=== PATIENT | female | born 1985 | race Hispanic/Latino ===

== ENCOUNTER 2017-10-31 10:46 | Emergency (ER) | payer MEDICAID, OTHER ==
[2017-10-31] MEDS ORDERED: HYDROXYZINE HCL 25 MG TABLET ONE (12:00)
== END 2017-10-31 12:56 | disposition home or self-care (01) ==
LOC: EDH 10:46
DX: F41.8 Other specified anxiety disorders (principal)
CPT/HCPCS: 70360; 81025

== ENCOUNTER 2025-01-15 06:48 | Day surgery (SDC) | payer MEDICAID ==
[~2025-01-15] VITALS: Ht 167.6 cm; Wt 92.5 kg
[2025-01-15] VITALS (11 sets, daily range): BP systolic 117–135; BP diastolic 67–84; PULSE 64–88; RESP 15–18; TEMP 97.1–97.8
[2025-01-15] MEDS: 0.9%NACL 1000ML 1,000 ML IV ONE (07:33)
== END 2025-01-15 11:50 | disposition home or self-care (01) ==
LOC: ENDO 06:48 → DAH 06:48 → ENDO 11:50
PROVIDERS: ATTEND Surgery
DX: R12 Heartburn (principal); K31.89 Other diseases of stomach and duodenum; K29.70 Gastritis, unspecified, without bleeding; K44.9 Diaphragmatic hernia without obstruction or gangrene; K22.89 Other specified disease of esophagus; I10 Essential (primary) hypertension; F17.200 Nicotine dependence, unspecified, uncomplicated; K21.9 Gastro-esophageal reflux disease without esophagitis; E11.9 Type 2 diabetes mellitus without complications; E78.00 Pure hypercholesterolemia, unspecified; Z90.710 Acquired absence of both cervix and uterus; E66.01 Morbid (severe) obesity due to excess calories; Z68.35 Body mass index [BMI] 35.0-35.9, adult; Z79.84 Long term (current) use of oral hypoglycemic drugs; Z79.899 Other long term (current) drug therapy
CPT/HCPCS: 82948 ×2; 43239; J7030 ×2; J2704; A4620; A4215; A4223; A4657; A7002; A4222; A4221; A4663; A4606; J3490